=== PATIENT | male | born 1955 | race Caucasian/White ===

== ENCOUNTER 2022-09-07 05:42 | Inpatient (IN) | payer MEDICARE, OTHER ==
[~2022-09-07] VITALS: Ht 182.9 cm; Wt 107.0 kg
--- NOTE | 2022-09-07 06:00 | NUR ---
[id number]. FOUND OUTSIDE APARTMENT BY NEIGHBOR LYING ON THE GROUND. PER NEIGHBOR. PT WAS NO ACTING HIMSELF. PT AO X 4, SATURATION AT 97% ON 5L VIA NC. PT NOTED HYPOTENSIVE SBP AT 70'S. PT PLACED ON [place], ATTACHED TO MONITOR AND PULSE OX. WILL CONT TO MONITOR
--- NOTE | 2022-09-07 06:19 | NUR ---
IV LINE ESTABLISHED AT LAC 20G, BLOOD DRAWN SENT TO LAB
[2022-09-07] MEDS ORDERED: IV NS 0.9% 1,000 ML BAG IV ONE ×2 (06:30→08:00)
--- NOTE | 2022-09-07 06:50 | NUR ---
MEDICARE SALES EXECUTIVE AT BEDSIDE FOR XRAY
[2022-09-07 06:53] LABS: BASOPHILS % (AUTO) 0.6 % (0.0-2.0); EOSINOPHILS % (AUTO) 0.8 % (0.0-6.0); HEMATOCRIT 24 % (39-51); HEMOGLOBIN 8.2 g/dL (13.5-17.5); LYMPHOCYTES # (AUTO) 0.5 K/uL (0.8-4.8); LYMPHOCYTES % (AUTO) 10.7 % (20.0-44.0); MEAN CORPUSCULAR HGB CONC 34 g/dl (31.0-36.0); MEAN CORPUSCULAR VOLUME 96 fL (80-96); MONOCYTES # (AUTO) 0.9 K/uL (0.1-1.30); NEUTROPHILS # (AUTO) 3.3 K/uL (1.8-8.9); NEUTROPHILS % (AUTO) 69.9 % (43.0-81.0); PLATELET COUNT (AUTO) 122 K/uL (150-450); RED BLOOD CELL COUNT(AUTO) 2.51 MIL/uL (4.5-6.0); WHITE BLOOD COUNT (AUTO) 4.8 K/uL (4.3-11.0)
[2022-09-07 07:10] LABS: ALANINE AMINOTRANSFERASE 11 U/L (12-78); ALBUMIN 3.3 g/dL (3.4-5.0); ALKALINE PHOSPHATASE 44 U/L (46-116); ASPARTATE AMINOTRANSFERASE 21 U/L (15-37); BILIRUBIN,DIRECT 0.1 mg/dL (0.0-0.2); BILIRUBIN,TOTAL 0.3 mg/dL (0.2-1.0); CALCIUM, SERUM 8.6 mg/dL (8.5-10.1); CARBON DIOXIDE 14 mmol/L (21-32); CHLORIDE 97 mmol/L (98-107); CREATININE 3.1 mg/dL (0.6-1.3); GLUCOSE 142 mg/dL (74-106); POTASSIUM 3.6 mmol/L (3.5-5.1); SODIUM SERUM 130 mmol/L (136-145); TOTAL PROTEIN, SERUM 6.5 g/dL (6.4-8.2); UREA NITROGEN, BLOOD 12 mg/dL (7-18)
[2022-09-07 07:12] LABS: ACETAMINOPHEN 0 ug/ml (10-30)
--- NOTE | 2022-09-07 07:51 | NUR ---
GUAIAC EXAM PERFORMED BY DR. GARCIA AT THE BED SIDE, THE RESULT IS NEGATIVE PER MD .
--- NOTE | 2022-09-07 07:52 | NUR ---
COVID SWAB TAKEN SENT TO LAB
[2022-09-07] MEDS ORDERED: METO25TA4 PO (08:04)
[2022-09-07] MEDS ORDERED: QUET300T2 PO (08:04)
[2022-09-07] MEDS ORDERED: ATOR40TA PO (08:04)
[2022-09-07] MEDS ORDERED: AMLO-213 PO (08:04)
[2022-09-07] MEDS ORDERED: DIVA500T54 PO (08:04)
--- NOTE | 2022-09-07 08:35 | NUR ---
FLOOD CATHERTER PLACED , URINE SAMPLE OBTAINED AND SENT TO LAB
[2022-09-07 08:43] LABS: BILIRUBIN,URINE NEGATIVE (NEGATIVE); COLOR,URINE YELLOW (YELLOW); LEUKOCYTE ESTERASE ,URINE NEGATIVE (NEGATIVE); NITRITE, URINE NEGATIVE (NEGATIVE); PROTEIN,URINE 1+ mg/dl (NEGATIVE); UGLUCOSE NEGATIVE (NEGATIVE); UROBILINOGEN,URINE 0.2 EU/dL (0.2)
[2022-09-07 08:49] LABS: BACTERIA,URINE Few /HPF (None Seen); RBC,URINE NONE SEEN /HPF (0-2); SQUAMOUS EPITHELIAL CELL,UR 0-2 /HPF (None Seen)
[2022-09-07] MEDS ORDERED: CEFTRIAXONE 1GM BAG (ER ONLY) 50 ML IV ONE (09:00)
[2022-09-07] MEDS ORDERED: LEVOFLOXACIN 750 MG /D5W 150ML 150 ML IV ONE ×2 (09:30→09:37)
[2022-09-07 09:42] LABS: BAND % (MANUAL) 2 % (0.0-5.0); LYMPHOCYTES % (MANUAL) 10 % (16-48); MONOCYTES % (MANUAL) 10 % (0-11.0); NEUTROPHILS % (MANUAL) 78 (42-76)
--- NOTE | 2022-09-07 10:32 | NUR ---
LATEST LACTIC ACID 3.6
[2022-09-07] MEDS ORDERED: ONDANSETRON HCL/PF 4 MG/2 ML VIAL IVP PRN (11:30)
--- NOTE | 2022-09-07 12:25 | NUR ---
ROOM 103
--- NOTE | 2022-09-07 13:05 | NUR ---
REPORT GIVEN TO WESTON MARES
[2022-09-07 13:25] LABS: BASOPHILS % (AUTO) 0.2 % (0.0-2.0); EOSINOPHILS % (AUTO) 0.1 % (0.0-6.0); HEMATOCRIT 27 % (39-51); HEMOGLOBIN 8.8 g/dL (13.5-17.5); LYMPHOCYTES # (AUTO) 0.4 K/uL (0.8-4.8); LYMPHOCYTES % (AUTO) 9.9 % (20.0-44.0); MEAN CORPUSCULAR HGB CONC 33 g/dl (31.0-36.0); MEAN CORPUSCULAR VOLUME 96 fL (80-96); MONOCYTES # (AUTO) 0.7 K/uL (0.1-1.30); MONOCYTES % (AUTO) 16.9 % (2.0-12.0); NEUTROPHILS # (AUTO) 3.1 K/uL (1.8-8.9); NEUTROPHILS % (AUTO) 72.9 % (43.0-81.0); PLATELET COUNT (AUTO) 104 K/uL (150-450); RED BLOOD CELL COUNT(AUTO) 2.76 MIL/uL (4.5-6.0); WHITE BLOOD COUNT (AUTO) 4.2 K/uL (4.3-11.0)
[2022-09-07 14:04] LABS: ABG BASE EXCESS -6.4 mmol/L; ABG OXYGEN SATURATION 93.9 % (92.0-98.5); ABG PCO2 34.5 mmHg (35.0-45.0); ABG PH 7.348 (7.350-7.450); ABG PO2 77.7 mmHg (75.0-100.0); AaDO2 110.1 mmHg; COHb 0.3 % (0.5-1.5); MetHb 0.2 % (0.0-1.5); O2Hb 93.4 % (94.0-97.0); SITE, ABG Right Radial; VENT MODE, BG 3L NC
[2022-09-07] MEDS: IV NS 0.9% 1,000 ML IV PRN (14:20)
[2022-09-07 16:00] VITALS: BP 119/71
[2022-09-07] MEDS: ENOXAPARIN SODIUM 30 MG/0.3 ML DISP.SYRIN SQ SCH (16:30)
--- NOTE | 2022-09-07 18:26 | NUR ---
RN NOTE PT RESTING IN BED, AWAKE ALERT AND RESPONSIVE. ON O2 VIA NC @ 3L. NOT IN RESPI DISTRESS. WITH IV ACCESS ON LAC G 20 WITH IVF NS @100CC/HR. DUE MEDICATIONS GIVEN. SAFETY MEASURES FOLLOWED. PM CARE RENDERED. WILL CONTINUE TO MONITOR. V/S WNL.
--- NOTE | 2022-09-07 19:00 | NUR ---
RN NOTE Patient in bed, on semi simpson's, AO x 3, in no acute distress, saturation at 96% on 2L via NC, SR on the monitor, HR is 79. IV line at LAC 20g patent and flushing well, with NS infusing at 100 ml/hr, corado catheter draining to a clear, yellow output. Safety measures in place, bed is locked and at lowest position, call light within reach of patient. Will cont to monitor and reassess for any changes.
[2022-09-07 20:00] VITALS: BP 139/73
--- NOTE | 2022-09-07 21:07 | NUR ---
RN NOTE Patient asking for his evening meds, med recon not done yet. Dr Bowden was made aware, order received to restart all meds, with Amlodipine and Metoprolol to start in AM. power house control room operator Emily made aware
[2022-09-07] MEDS: DIVALPROEX SODIUM 500 MG TABLET.DR PO SCH (21:21)
[2022-09-07] MEDS: QUETIAPINE FUMARATE 100 MG TABLET PO SCH (21:21)
[2022-09-07] MEDS: ATORVASTATIN 40 MG TABLET PO SCH (21:21)
[2022-09-08] VITALS: BP 143/84
[2022-09-08] MEDS: IV NS 0.9% 1,000 ML IV PRN ×3 (01:59→22:41)
[2022-09-08 04:00] VITALS: BP 117/74
[2022-09-08 06:47] LABS: BASOPHILS % (AUTO) 0.9 % (0.0-2.0); EOSINOPHILS % (AUTO) 0.1 % (0.0-6.0); HEMATOCRIT 24 % (39-51); HEMOGLOBIN 8.3 g/dL (13.5-17.5); LYMPHOCYTES # (AUTO) 1.1 K/uL (0.8-4.8); LYMPHOCYTES % (AUTO) 33.2 % (20.0-44.0); MEAN CORPUSCULAR HGB CONC 34 g/dl (31.0-36.0); MEAN CORPUSCULAR VOLUME 95 fL (80-96); MONOCYTES # (AUTO) 0.6 K/uL (0.1-1.30); NEUTROPHILS # (AUTO) 1.6 K/uL (1.8-8.9); NEUTROPHILS % (AUTO) 48.8 % (43.0-81.0); PLATELET COUNT (AUTO) 88 K/uL (150-450); RED BLOOD CELL COUNT(AUTO) 2.58 MIL/uL (4.5-6.0); WHITE BLOOD COUNT (AUTO) 3.3 K/uL (4.3-11.0)
[2022-09-08 07:09] LABS: ALBUMIN 2.7 g/dL (3.4-5.0); BILIRUBIN,TOTAL 0.2 mg/dL (0.2-1.0); CALCIUM, SERUM 7.9 mg/dL (8.5-10.1); CREATININE 2.5 mg/dL (0.6-1.3); PHOSPHORUS 3.2 mg/dL (2.5-4.9); POTASSIUM 3.2 mmol/L (3.5-5.1); TOTAL PROTEIN, SERUM 5.7 g/dL (6.4-8.2)
[2022-09-08 08:00] VITALS: BP 109/68
[2022-09-08 08:38] LABS: LYMPHOCYTES % (MANUAL) 23 % (16-48); MONOCYTES % (MANUAL) 12 % (0-11.0); NEUTROPHILS % (MANUAL) 65 (42-76)
[2022-09-08] MEDS: METOPROLOL SUCCINATE 25 MG TAB.SR.24H PO SCH (08:56)
[2022-09-08] MEDS: DIVALPROEX SODIUM 500 MG TABLET.DR PO SCH (08:56)
[2022-09-08] MEDS: AMLODIPINE BESYLATE 10 MG TABLET PO SCH (08:57)
[2022-09-08] MEDS: ENOXAPARIN SODIUM 30 MG/0.3 ML DISP.SYRIN SQ SCH (11:47)
[2022-09-08] MEDS: POTASSIUM CHLORIDE 20 MEQ TAB.PRT.SR PO ONE ×2 (11:48→12:35)
[2022-09-08 12:00] VITALS: BP 127/76
--- NOTE | 2022-09-08 12:00 | NUR ---
RN NOTE LOVENOX 0900 O'CLOCK WAS ADMINISTERED LATE BECAUSE I WAS WAITING FOR ASSOCIATE FACULTY MO CONFIRMATION REGARDING THE LAB H&H AND PLT TRENDING DOWN, SHE SAID IF THERE IS NO BLEEDING I CAN GIVE IT SO THE MEDICATION WAS ADMINISTERED LATE.
[2022-09-08] MEDS ORDERED: ENOXAPARIN SODIUM 30 MG/0.3 ML DISP.SYRIN SQ SCH (13:00)
--- NOTE | 2022-09-08 14:30 | NUR ---
RN NOTE TODAY PATIENT WAS ON THE PHONE WITH HIS EX- SHE WAS ON SPEAKER AND ASKED ME TO ASKED THE PATIENT FOR PERMISSION FOR MAKING DECISIONS BEHALF OF THE PATIENT, PATIENT SAID HE IS FINE AND HE HAS ONLY $3200 IN THE BANK AND HE DOES NOT MIND IF SHE WANT TO TAKE CARE OVER IT AND MAKE DECISIONS FOR HIM. LATER ON CASE MANAGE JOAQUÍN CALLED AND I TOLD HER ABOUT THE EX ASKING FOR THE MAKING DECISIONS THE IT SUPPORT CONSULTANT ASKED THE PATIENT TO GIVE HER THE NUMBER OF HIS EX , HE GAVE THE NUMBER NAD IT SUPPORT CONSULTANT WILL FOLLOW UP WITH THE .
--- NOTE | 2022-09-08 14:30 | NUR ---
RN NOTE TODAY PATIENT WAS ON THE PHONE WITH HIS EX- SHE WAS ON SPEAKER AND ASKED ME TO ASKED THE PATIENT FOR PERMISSION FOR MAKING DECISIONS BEHALF OF THE PATIENT, PATIENT SAID HE IS FINE AND HE HAS ONLY $3200 IN EBANK AND
[2022-09-08 16:00] VITALS: BP 146/83
--- NOTE | 2022-09-08 19:00 | NUR ---
RN CLOSING NOTE PT RESTING IN BED, AWAKE ALERT AND RESPONSIVE. ON O2 VIA NC @ 4L. NOT IN RESPIRATORY DISTRESS. WITH IV ACCESS ON LAC G 20 WITH IVF NS @100CC/HR. DUE MEDICATIONS GIVEN. SAFETY MEASURES FOLLOWED. WILL CONTINUE TO [facility] SHIFT NURSE FOR ERLIN.
--- NOTE | 2022-09-08 19:30 | NUR ---
RN OPENING NOTE Received patient in bed, on semi simpson's, A/O x 3, able to verbalize needs. Pt is showing no s/sx of acute respi distress noted at this time, saturation at 100% on 5L via NC, SR on the monitor, HR in 60s. IV line at LAC 20g patent, intact and flushing well, infusing NS at 100 ml/hr. Nunn catheter in place draining to a clear, yellow output by gravity. All safety measures in place: bed is locked and in lowest position, call light within reach of patient. Will cont to monitor and reassess for any changes.
[2022-09-08] MEDS: ACETAMINOPHEN 325 MG TABLET PO PRN (19:51)
[2022-09-08 20:00] VITALS: BP 102/64
--- NOTE | 2022-09-08 20:01 | NUR ---
RN NOTE ASKED FOR PAIN MEDICATION. ALL VS STABLE UPON ASSESSMENT. NO ACUTE RESPI DISTRESS NOTED. GAVE TYLENOL PRN ORDERED.
[2022-09-08] MEDS: QUETIAPINE FUMARATE 100 MG TABLET PO SCH (21:28)
[2022-09-08] MEDS: ATORVASTATIN 40 MG TABLET PO SCH (21:28)
[2022-09-09] VITALS: BP 142/84
[2022-09-09 04:00] VITALS: BP 148/85
--- NOTE | 2022-09-09 05:15 | NUR ---
RN NOTE PT O2 SAT GOES DOWN TO LOW 90s, PT STATES HE FEELS STUFFY IN THE NOSE. PUT O2 TO 6L, WAITED A FEW MINUTES AND O2 SAT WENT BACK UP TO 95%. ALL OTHER VS STABLE. WILL ENDORSE TO AM SHIFT NURSE FOR ERLIN.
[2022-09-09 08:00] VITALS: BP 126/71
[2022-09-09] MEDS: ENOXAPARIN SODIUM 30 MG/0.3 ML DISP.SYRIN SQ SCH (10:26)
[2022-09-09] MEDS: DIVALPROEX SODIUM 500 MG TABLET.DR PO SCH (10:27)
[2022-09-09] MEDS: METOPROLOL SUCCINATE 25 MG TAB.SR.24H PO SCH (10:27)
[2022-09-09] MEDS: AMLODIPINE BESYLATE 10 MG TABLET PO SCH (10:27)
[2022-09-09] MEDS ORDERED: LEVOFLOXACIN 500 MG /D5W 100ML 500 MG in PREMIX 1 EA IV SCH (11:00)
[2022-09-09 12:00] VITALS: BP 139/81
[2022-09-09] MEDS: ACETAMINOPHEN 325 MG TABLET PO PRN ×2 (14:23→21:02)
[2022-09-09] MEDS: IV NS 0.9% 1,000 ML IV PRN (14:23)
[2022-09-09] MEDS ORDERED: IV NS 0.9% 1,000 ML IV PRN (14:38)
[2022-09-09 16:00] VITALS: BP 130/80
[2022-09-09] MEDS ORDERED: IPRATROPIUM NEB FS 0.5 MG/2.5 ML AMPUL.NEB NEB PRN (16:00)
--- NOTE | 2022-09-09 18:52 | NUR ---
RN CLOSING NOTE PATIENT RESTING IN BED, AWAKE ALERT AND RESPONSIVE. BREATHING ON O2 VIA NC @ 5L. NOT IN RESPIRATORY DISTRESS. WITH IV ACCESS ON LAC #20 WITH IVF NS @50CC/HR. DUE MEDICATIONS GIVEN. ALL SAFETY MEASURES IN PLACE, BED LOCKED IN LOWEST POSITION. CALL LIGHT WITHIN REACH. WILL ENDORSE CONTINUITY OF CARE TO PIT HOIST OPERATOR NURSE.
--- NOTE | 2022-09-09 19:30 | NUR ---
RN OPENING NOTE Received patient in bed, on semi simpson's, A/O x 3, able to verbalize needs. Pt is showing no s/sx of acute respi distress noted at this time, saturation at 100% on 5L via NC, SR on the monitor, HR in 70s. IV line at LAC 20g patent, intact and flushing well, infusing NS at 50 ml/hr. Nunn catheter in place draining to a clear, yellow output by gravity. All safety measures in place: bed is locked and in lowest position, call light within reach of patient. Will cont to monitor and reassess for any changes.
[2022-09-09 20:00] VITALS: BP 156/93
[2022-09-09] MEDS: ATORVASTATIN 40 MG TABLET PO SCH (21:02)
[2022-09-09] MEDS: QUETIAPINE FUMARATE 100 MG TABLET PO SCH (21:02)
[2022-09-10] VITALS: BP 137/74
[2022-09-10 04:00] VITALS: BP 155/82
--- NOTE | 2022-09-10 06:13 | NUR ---
RN CLOSING NOTE PT REMAINED STABLE T/O THE NIGHT. ALL VS STABLE. DUE MEDS GIVEN. PM CARE DONE. NEEDS ATTENDED TO. TURNED AND REPOSITIONED. WILL ENDORSE TO AM SHIFT NURSE FOR ERLIN.
[2022-09-10 06:47] LABS: BASOPHILS % (AUTO) 0.5 % (0.0-2.0); EOSINOPHILS % (AUTO) 1.9 % (0.0-6.0); HEMATOCRIT 27 % (39-51); HEMOGLOBIN 8.9 g/dL (13.5-17.5); LYMPHOCYTES # (AUTO) 1.3 K/uL (0.8-4.8); LYMPHOCYTES % (AUTO) 34.6 % (20.0-44.0); MEAN CORPUSCULAR HGB CONC 33 g/dl (31.0-36.0); MEAN CORPUSCULAR VOLUME 96 fL (80-96); MONOCYTES # (AUTO) 0.3 K/uL (0.1-1.30); NEUTROPHILS # (AUTO) 2.1 K/uL (1.8-8.9); PLATELET COUNT (AUTO) 74 K/uL (150-450); WHITE BLOOD COUNT (AUTO) 3.9 K/uL (4.3-11.0)
[2022-09-10 06:58] LABS: CALCIUM, SERUM 8.5 mg/dL (8.5-10.1); CREATININE 1.9 mg/dL (0.6-1.3); MAGNESIUM 1.7 mg/dL (1.8-2.4); PHOSPHORUS 3.5 mg/dL (2.5-4.9); POTASSIUM 4.5 mmol/L (3.5-5.1)
[2022-09-10] MEDS ORDERED: Magnesium 1GM/D5W 100ML PREMIX 100 ML IV SCH (08:00)
[2022-09-10] MEDS: METOPROLOL SUCCINATE 25 MG TAB.SR.24H PO SCH (08:10)
[2022-09-10] MEDS: DIVALPROEX SODIUM 500 MG TABLET.DR PO SCH (08:10)
[2022-09-10] MEDS: AMLODIPINE BESYLATE 10 MG TABLET PO SCH (08:10)
[2022-09-10 08:23] LABS: EOSINOPHILS % (MANUAL) 3 % (0-4); LYMPHOCYTES % (MANUAL) 39 % (16-48); MONOCYTES % (MANUAL) 6 % (0-11.0); NEUTROPHILS % (MANUAL) 52 (42-76)
[2022-09-10 09:04] VITALS: BP 159/82
--- NOTE | 2022-09-10 09:42 | NUR ---
RN OPENING NOTE Received patient in bed, on semi simpson's, A/O x 3, able to verbalize needs. Noted on 5l 02 via nc, tolerating well. noted audible wheezing, RT notified, breathing treatment given. No sob noted. not in distress. SR on the monitor, HR in 70s. IV line at LAC 20g patent, intact and flushing well, infusing NS at 50 ml/hr. Magnesium IV given as ordered. Nunn catheter in place draining to a clear, yellow output by gravity. Due medications given. Noted PLATELETS IS LOW, MD NOTIFIED, AWAITING FOR ORDERS. All safety measures in place: bed is locked and in lowest position, call light within reach of patient. WILL CONTINUE PLAN OF CARE.
[2022-09-10] MEDS: ENOXAPARIN SODIUM 30 MG/0.3 ML DISP.SYRIN SQ SCH (10:59)
--- NOTE | 2022-09-10 11:11 | NUR ---
RN NOTES NOTIFIED MD OF THE LOW PLATELETS, WITH ORDER TO GIVE LOVENOX, NO BLEEDING NOTED, WILL CONTINUE PLAN OF CARE.
[2022-09-10 12:00] VITALS: BP 161/89
[2022-09-10] MEDS ORDERED: ALBUTEROL FS 2.5 MG/0.5 ML VIAL.NEB NEB PRN (12:30)
[2022-09-10 16:00] VITALS: BP 151/83
--- NOTE | 2022-09-10 18:34 | NUR ---
PRODUCTION WELDER CLOSING NOTE patient in bed, on semi simpson's, A/O x 3, able to verbalize needs. Noted on 4L 02 via nc, tolerating well. noted with audible crackles, md notified. No sob noted. not in distress. SR on the monitor, HR 72. IV line at LAC 20g patent, intact and flushing well. Nunn catheter in place draining to a clear, yellow output by gravity. All safety measures in place: bed is locked and in lowest position, call light within reach of patient. WILL ENDORSE TO NIGHT NURSE FOR ERLIN. Addendum: 09/10/22 at 1854 by RJ LOPES RN NOTED WITH AUDIBLE CRACKLES, MD AND RT NOTIFIED, NOTED PATIENT IS COVID POSITIVE, INFORMED PHARMACY IF WE CAN CHANGE IT TO INHALER. NO SOB NOTED,RESPIRATION EVEN AND UNLABORED. MD ORDER TO D/C IVF. NOTED AND CARRIED OUT. WILL ENDORSE TO NIGHT NURSE FOR ERLIN.
[2022-09-10] MEDS ORDERED: ALBUTEROL SULFATE 8 GM HFA.AER.AD IH PRN (19:00)
[2022-09-10] MEDS ORDERED: IPRATROPIUM BROMIDE 14 GM INHALER (or 12.9 GM) IH PRN (19:00)
[2022-09-10 20:00] VITALS: BP 128/81
[2022-09-10] MEDS: QUETIAPINE FUMARATE 100 MG TABLET PO SCH (21:33)
[2022-09-10] MEDS: ATORVASTATIN 40 MG TABLET PO SCH (21:33)
--- NOTE | 2022-09-10 21:40 | NUR ---
SENIOR IT ENGINEER OPENING NOTE PT RECEIVED IN BED, AWAKE, A&O X3, NOTED TO HAVE CONFUSION. PT ON 4L NC WITH CURRENT O2SAT OF 98%; NO S/S OF RESP DISTRESS, NO SOB OR COUGH, NON-LABORED AND EQUAL BREATHING. PT ATTACHED TO EXTERNAL MONITOR, SR WITH HR OF 86. FLOOD INTACT AND PATENT, DRAINING ORANGE-YELLOW URINE. IV ACCESS ON LAC 20G INTACT AND PATENT, NO FLUIDS/MEDS INFUSING THROUGH IT. BED IN LOWEST POSITION, CALL LIGHT WITHIN REACH, SIDE RAILS UP X3. WILL CONTINUE TO MONITOR THROUGHOUT THE NIGHT.
[2022-09-11] VITALS: BP 155/91
[2022-09-11 04:00] VITALS: BP 169/113
[2022-09-11] MEDS: hydrALAZINE HCL 10 MG TABLET PO PRN ×2 (05:52→14:02)
--- NOTE | 2022-09-11 05:53 | NUR ---
RN NOTE PT NOTED TO HAVE BP OF 169/113, HR OF 72. PT ADMINISTERED HYDRALAZINE 10 MG. WILL MONITOR FOR EFFECTIVENESS.
--- NOTE | 2022-09-11 06:38 | NUR ---
DRAFTER ELECTROMECHANICAL CLOSING NOTE PT REMAINS IN BED, ASLEEP BUT EASILY AROUSABLE, A&O X3, CONTINUED TO HAVE CONFUSION THROUGHOUT THE NIGHT. PT OXYGEN TITRATED FROM 4L NC TO 3L; TOLERATING WELL, O2SAT RANGED FROM 96%-98%; NO S/S OF RESP DISTRESS, NO SOB OR COUGH, NON-LABORED AND EQUAL BREATHING. ATTACHED TO EXTERNAL MONITOR, SR WITH HR RANGING FROM 78- 86. FLOOD INTACT AND PATENT, DRAINING ORANGE-YELLOW URINE. IV ACCESS ON LAC 20G INTACT AND PATENT, REMAINED SL. BED IN LOWEST POSITION, CALL LIGHT WITHIN REACH, SIDE RAILS UP X3. ALL DUE MEDS ADMINISTERED DURING THE NIGHT. WILL ENDORSE TO DAYSHIFT NURSE TO CONTINUE CARE.
[2022-09-11 07:18] LABS: BASOPHILS % (AUTO) 0.4 % (0.0-2.0); CALCIUM, SERUM 8.7 mg/dL (8.5-10.1); CREATININE 1.6 mg/dL (0.6-1.3); EOSINOPHILS % (AUTO) 1.8 % (0.0-6.0); HEMATOCRIT 27 % (39-51); HEMOGLOBIN 8.8 g/dL (13.5-17.5); LYMPHOCYTES # (AUTO) 1.3 K/uL (0.8-4.8); LYMPHOCYTES % (AUTO) 31.7 % (20.0-44.0); MAGNESIUM 1.7 mg/dL (1.8-2.4); MEAN CORPUSCULAR HGB CONC 33 g/dl (31.0-36.0); MEAN CORPUSCULAR VOLUME 96 fL (80-96); MONOCYTES # (AUTO) 0.5 K/uL (0.1-1.30); MONOCYTES % (AUTO) 11.7 % (2.0-12.0); NEUTROPHILS # (AUTO) 2.2 K/uL (1.8-8.9); NEUTROPHILS % (AUTO) 54.4 % (43.0-81.0); PHOSPHORUS 3.3 mg/dL (2.5-4.9); PLATELET COUNT (AUTO) 75 K/uL (150-450); POTASSIUM 4.2 mmol/L (3.5-5.1); RED BLOOD CELL COUNT(AUTO) 2.77 MIL/uL (4.5-6.0); WHITE BLOOD COUNT (AUTO) 4.1 K/uL (4.3-11.0)
--- NOTE | 2022-09-11 07:25 | NUR ---
DOT ETCHER APPRENTICE OPENING NOTES: RECEIVED PATIENT IN BED, AWAKE, ALERT, ORIENTED X 2 WITH PERIODS OF CONFUSION. NO RESPIRATORY DISTRESS NOTED AT THIS TIME WITH OXYGEN SATURATION OF 97% ON 4L OF OXYGEN VIA N/C. ON SR ON TELE MONITOR WITH HR OF 80. IV ACCESS ON LEFT ANTECUBITAL IS INTACT, FLUSHES WELL, NO S/S INFILTRATION NOTED ON THE SITE. BED LOCKED AND IN LOWEST POSITION. ALL SAFETY MEASURES IN PLACE. CALL LIGHT WITHIN REACH. BED ALARM ON FOR SAFETY. WILL CONTINUE TO MONITOR PATIENT THROUGHOUT SHIFT.
[2022-09-11 08:00] VITALS: BP 170/101
[2022-09-11 08:11] LABS: BAND % (MANUAL) 2 % (0.0-5.0); EOSINOPHILS % (MANUAL) 2 % (0-4); LYMPHOCYTES % (MANUAL) 22 % (16-48); MONOCYTES % (MANUAL) 12 % (0-11.0); NEUTROPHILS % (MANUAL) 62 (42-76)
[2022-09-11] MEDS: AMLODIPINE BESYLATE 10 MG TABLET PO SCH (08:20)
[2022-09-11] MEDS: METOPROLOL SUCCINATE 25 MG TAB.SR.24H PO SCH (08:20)
[2022-09-11] MEDS: DIVALPROEX SODIUM 500 MG TABLET.DR PO SCH (08:20)
[2022-09-11] MEDS: ENOXAPARIN SODIUM 30 MG/0.3 ML DISP.SYRIN SQ SCH (08:21)
[2022-09-11] MEDS ORDERED: Ipratropium Bromide IH (10:20)
[2022-09-11] MEDS ORDERED: LEVO250T59 PO (10:20)
[2022-09-11] MEDS ORDERED: LEVOFLOXACIN (250MG) 250 MG TABLET PO SCH (11:00)
[2022-09-11] MEDS ORDERED: Magnesium 1GM/D5W 100ML PREMIX 100 ML IV SCH (11:00)
[2022-09-11 12:00] VITALS: BP 164/91
--- NOTE | 2022-09-11 13:34 | NUR ---
RECEIVED DISCHARGE ORDER FROM . DISCHARGE PAPERWORK STARTED. CALLED [facility] @ , SPOKE WITH SUZAN STRAUSS AND GAVE FULL REPORT FOR THE PATIENT AND THE EXPECTED RESPIRATORY CLINICIAN TIME FROM THE FACILITY @ 1600. INFORMED PATIENT OF THE ORDER AND WILL PREPARE THE PATIENT FOR DISCHARGE TODAY.
--- NOTE | 2022-09-11 14:04 | NUR ---
CALLED [facility] @ . SPOKE WITH ELIANA COTTAGE CHEESE MAKER AND INFORMED OF DISCHARGE ORDER FOR LEVOFLOXACIN 500 MG PO EVERY 48 HOURS FOR 3 DAYS
[2022-09-11 16:00] VITALS: BP 146/85
--- NOTE | 2022-09-11 16:25 | NUR ---
LAURENA CAME FROM [facility] ACCOMPANIED BY 2 MORE PERSONNEL TO OFFICER CAPTAIN THE PATIENT. GAVE REPORT TO AYA AND DISCHARGE PAPERWORK HANDED TO THE PATIENT. V/S FOLLOWS: BP 146/85. PULSE 73, TEMP 98.3, RR 20 ON OXYGEN @ 3L/MIN VIA N/C WITH OXYGEN SATURATION OF 93%. NO RESPIRATORY DISTRESS NOTED. DISCONTINUED FLOOD CATHETER AND IV SALINE LOCK WAS TAKEN OFF THE PATIENT, NOTED WITH HUB INTACT, ID BAND WAS REMOVED.
--- NOTE | 2022-09-11 17:15 | NUR ---
PATIENT LEFT VIA GURNEY IN NO APPARENT DISTRESS ACCOMPANIED BY 3 PERSONNEL. NO SOB NOTED, BREATHING EVEN AND UNLABORED WITH OXYGEN PLACED.
== END 2022-09-11 17:06 | DRG 177 ==
LOC: ER 05:55 → TELE1 12:42
PROVIDERS: ADMIT Nurse Practitioner Acute Care; ATTEND Nurse Practitioner Acute Care
DX: U07.1 COVID-19 (principal); G93.41 Metabolic encephalopathy; N17.0 Acute kidney failure with tubular necrosis; R57.1 Hypovolemic shock; E44.0 Moderate protein-calorie malnutrition; E87.1 Hypo-osmolality and hyponatremia; D68.59 Other primary thrombophilia; Z88.0 Allergy status to penicillin; Z79.899 Other long term (current) drug therapy; E86.0 Dehydration; D64.9 Anemia, unspecified; K57.30 Diverticulosis of large intestine without perforation or abscess without bleeding; E78.5 Hyperlipidemia, unspecified; E86.1 Hypovolemia; E66.9 Obesity, unspecified; Z68.32 Body mass index [BMI] 32.0-32.9, adult; Z86.59 Personal history of other mental and behavioral disorders; E88.09 Other disorders of plasma-protein metabolism, not elsewhere classified; I10 Essential (primary) hypertension; E87.6 Hypokalemia
CPT/HCPCS: 36415; 36600; 70450-TC; 71045-TC; 71250-TC; 80048-TC; 80053-TC; 80061-TC; 80076-TC; 81001; 82550-TC; 82803-TC; 83605-TC; 83735-TC; 84100-TC; 84484-TC; 85025-TC; 85378-TC; 85730-TC; 86140-TC; 86850-TC; 87040-TC; 87081-TC; 87086-TC; 94799-TC; 97116-TC; 97530-TC; A4216; C9803; G0378; J1650; J1956; J3475; J7030; J7050